=== PATIENT | female | born 2000 | race Two or more races ===

== ENCOUNTER 2022-11-12 20:07 | Emergency (ER) | payer SELFPAY ==
[~2022-11-12] VITALS: Ht 157.5 cm; Wt 56.8 kg
[~2022-11-12 20:07] MED LIST: CEPH-558 PO; DOXY-354 PO; IBUP-1554 PO
[2022-11-12 20:15] VITALS: BP 108/58; PULSE 78; RESP 13; TEMP 98.3
[2022-11-12] MEDS ORDERED: IBUP-1554 PO (21:59)
[2022-11-12] MEDS: IBUPROFEN 600 MG TABLET PO ONE (22:25)
== END 2022-11-12 22:30 | disposition home or self-care (01) ==
LOC: EMS 20:07
DX: S83.91XA Sprain of unspecified site of right knee, initial encounter (principal); W01.0XXA Fall on same level from slipping, tripping and stumbling without subsequent striking against object, initial encounter; Y93.89 Activity, other specified; Y92.89 Other specified places as the place of occurrence of the external cause; Y99.8 Other external cause status
CPT/HCPCS: 29505; 99283

== ENCOUNTER 2023-01-05 21:41 | Emergency (ER) | payer MEDICAID, OTHER ==
[~2023-01-05] VITALS: Ht 162.6 cm; Wt 52.7 kg
[2023-01-05 21:48] VITALS: TEMP 98.6
[2023-01-05 21:55] VITALS: BP 105/71; PULSE 99; RESP 15
[2023-01-05 22:46] LABS: BASOPHILS % (AUTO) 0.3 % (0.0-2.0); EOSINOPHILS % (AUTO) 1.2 % (1.0-6.0); LYMPHOCYTES # (AUTO) 1.6 K/uL (1.0-4.8); LYMPHOCYTES % (AUTO) 23.7 % (22.0-44.0); MEAN CORPUSCULAR HEMOGLOBIN 29.4 pg (26.0-34.0); MEAN CORPUSCULAR HGB CONC 33.3 G/dL (31.0-37.0); MEAN CORPUSCULAR VOLUME 88 fL (80-100); MONOCYTES # (AUTO) 0.4 K/uL (0.1-1.0); MONOCYTES % (AUTO) 5.8 % (2.0-9.0); NEUTROPHILS # (AUTO) 4.6 K/uL (1.8-7.7); PLATELET COUNT (AUTO) 269 K/uL (150-450); RED BLOOD CELL COUNT(AUTO) 4.42 MIL/uL (4.00-5.20); RED CELL DISTRIBUTION WIDTH 12.9 % (11.5-14.5); WHITE BLOOD COUNT (AUTO) 6.6 K/uL (4.5-11.0)
== END 2023-01-06 | disposition home or self-care (01) ==
LOC: EMS 21:45
DX: O20.0 Threatened abortion (principal); Z3A.00 Weeks of gestation of pregnancy not specified
CPT/HCPCS: 76801; 84702; 85025; 86901; 99284

== ENCOUNTER 2023-01-19 14:05 | Emergency (ER) | payer OTHER ==
[~2023-01-19] VITALS: Ht 162.6 cm; Wt 53.6 kg
[2023-01-19 14:39] VITALS: TEMP 98.5
[2023-01-19 15:26] LABS: BASOPHILS % (AUTO) 0.5 % (0.0-2.0); EOSINOPHILS % (AUTO) 0.9 % (1.0-6.0); HEMATOCRIT 39.9 % (36-46); HEMOGLOBIN 13.6 g/dL (12.0-16.0); LYMPHOCYTES # (AUTO) 1.3 K/uL (1.0-4.8); LYMPHOCYTES % (AUTO) 18.4 % (22.0-44.0); MEAN CORPUSCULAR HEMOGLOBIN 29.8 pg (26.0-34.0); MEAN CORPUSCULAR VOLUME 88 fL (80-100); MONOCYTES # (AUTO) 0.3 K/uL (0.1-1.0); MONOCYTES % (AUTO) 4.6 % (2.0-9.0); NEUTROPHILS # (AUTO) 5.1 K/uL (1.8-7.7); NEUTROPHILS % (AUTO) 75.6 % (40.0-70.0); PLATELET COUNT (AUTO) 240 K/uL (150-450); RED BLOOD CELL COUNT(AUTO) 4.55 MIL/uL (4.00-5.20); RED CELL DISTRIBUTION WIDTH 12.7 % (11.5-14.5); WHITE BLOOD COUNT (AUTO) 6.8 K/uL (4.5-11.0)
[2023-01-19 15:36] LABS: ANION GAP 4 mmol/L (8-16); CALCIUM, TOTAL 9.1 mg/dL (8.8-10.5); CARBON DIOXIDE 31 mmol/L (22-29); CHLORIDE 104 mmol/L (98-107); CREATININE 0.72 mg/dL (0.60-1.30); GLOMERULAR FILTR. RATE CALC > 60 mL/min (>60); GLUCOSE,RANDOM 93 mg/dL (70-110); POTASSIUM 4.3 mmol/L (3.5-5.1); SODIUM SERUM 139 mmol/L (136-145); UREA NITROGEN, BLOOD 8 mg/dL (7-18)
[2023-01-19 15:47] LABS: ALANINE AMINOTRANSFERASE 20 U/L (12-78); ALKALINE PHOSPHATASE 66 U/L (46-116); ASPARTATE AMINOTRANSFERASE 16 U/L (15-37); BILIRUBIN,TOTAL 0.6 mg/dL (0.1-1.0); HCG,QUANTITATIVE 58 mIU/mL (0-6); TOTAL PROTEIN, SERUM 7.9 g/dL (6.4-8.2)
[2023-01-19] MEDS ORDERED: ACETAMINOPHEN 325 MG TABLET PO ONE (16:00)
[2023-01-19 16:30] VITALS: BP 115/72; PULSE 88; RESP 16
== END 2023-01-19 19:36 | disposition home or self-care (01) ==
LOC: EMS 14:05
DX: O03.4 Incomplete spontaneous abortion without complication (principal); Z3A.01 Less than 8 weeks gestation of pregnancy
CPT/HCPCS: 76801; 80053; 84702; 85025; 86901; 99284

== ENCOUNTER 2023-07-03 09:41 | Emergency (ER) | payer OTHER ==
[~2023-07-03] VITALS: Ht 162.6 cm; Wt 54.5 kg
[2023-07-03 09:47] VITALS: TEMP 98
[2023-07-03] MEDS: CEPHALEXIN MONOHYDRATE 500 MG CAPSULE PO ONE (12:07)
[2023-07-03] MEDS: LIDOCAINE 1% 10 ML VIAL SQ ONE (12:07)
[2023-07-03] MEDS: IBUPROFEN 600 MG TABLET PO ONE (12:07)
[2023-07-03] MEDS: ACETAMINOPHEN 500 MG TABLET PO ONE (12:07)
[2023-07-03] MEDS ORDERED: ACET-66 PO (12:28)
[2023-07-03] MEDS ORDERED: IBUP-1554 PO (12:28)
[2023-07-03] MEDS ORDERED: AMOX1TAB16 PO (12:28)
[2023-07-03 12:30] VITALS: BP 110/60; PULSE 76; RESP 16
== END 2023-07-03 12:50 | disposition home or self-care (01) ==
LOC: EMS 09:48
DX: L02.31 Cutaneous abscess of buttock (principal)
CPT/HCPCS: 99284; 10160; J3490